=== PATIENT | male | born 1985 | race Caucasian/White ===

== ENCOUNTER 2016-10-25 13:29 | Emergency (ER) | payer MEDICAID | END 2016-10-25 13:55 | disposition home or self-care (01) | LOC: C.ER 13:29 | DX: S61.213A Laceration without foreign body of left middle finger without damage to nail, initial encounter (principal); W26.0XXA Contact with knife, initial encounter; Y93.9 Activity, unspecified; Y92.9 Unspecified place or not applicable ==